=== PATIENT | female | born 1975 | race Caucasian/White ===

== ENCOUNTER 2023-01-26 07:45 | Outpatient (CLI) | payer OTHER | END 2023-01-26 07:46 | disposition home or self-care (01) | LOC: BICMAMMO 07:45 | PROVIDERS: ATTEND Nurse Practitioner Family | DX: N63.22 Unspecified lump in the left breast, upper inner quadrant (principal); N64.89 Other specified disorders of breast | CPT/HCPCS: 77066; G0279 ==